=== PATIENT | male | born 1950 | race Caucasian/White ===

== ENCOUNTER 2016-04-18 10:30 | Emergency (ER) | payer SELFPAY ==
--- NOTE | 2016-04-18 11:31 | RAD ---
CHEST 2 VIEWS HISTORY: Cough x3 days. Frontal and lateral chest radiographs dated 04/18/2016. COMPARISON: None. FINDINGS: FOCAL AIRSPACE OPACITY: No gross airspace consolidation. BRONCHOVASCULAR MARKINGS: Coarsened. PLEURAL EFFUSION: None. CARDIOMEDIASTINAL SILHOUETTE: Nonenlarged. Minor aortic arch calcification. PNEUMOTHORAX: None identified. OSSEOUS STRUCTURES: Thoracic disc degeneration and spondylosis. IMPRESSION: No gross airspace consolidation. Coarsened bronchovascular markings, which can be seen in the setting of bronchitis, atypical/viral infection, or central airways disease.
== END 2016-04-18 11:49 | disposition home or self-care (01) ==
LOC: ED 10:30
DX: J06.9 Acute upper respiratory infection, unspecified (principal)